=== PATIENT | female | born 1995 | race African-American/Black ===

== ENCOUNTER 2020-12-20 21:31 | Emergency (ER) | payer OTHER ==
[~2020-12-20] VITALS: Ht 152.4 cm; Wt 49.0 kg
[2020-12-20 21:34] VITALS: BP 130/90
== END 2020-12-21 00:30 | disposition home or self-care (01) ==
LOC: ER 21:31
DX: S01.81XA Laceration without foreign body of other part of head, initial encounter (principal); I10 Essential (primary) hypertension; Z88.0 Allergy status to penicillin; W45.8XXA Other foreign body or object entering through skin, initial encounter; Y93.89 Activity, other specified; Y92.89 Other specified places as the place of occurrence of the external cause; Y99.0 Civilian activity done for income or pay